=== PATIENT | male | born 1960 | race Caucasian/White ===

== ENCOUNTER 2024-12-07 04:51 | Day surgery (SDC) | payer OTHER ==
[2024-12-02 10:27] VITALS: BMI 31.8
[2024-12-07 13:06] VITALS: BP 116/87; PULSE 82; RESP 18; TEMP 98
== END 2024-12-07 12:47 | disposition home or self-care (01) ==
LOC: JASU-ENDO 04:51
PROVIDERS: ATTEND Internal Medicine Gastroenterology
PROC: 0DBM8ZX Excision of Descending Colon, Via Natural or Artificial Opening Endoscopic, Diagnostic (ICD-10-PCS; principal; 2024-12-07 11:15)
DX: K64.8 Other hemorrhoids (principal); K57.30 Diverticulosis of large intestine without perforation or abscess without bleeding; D12.4 Benign neoplasm of descending colon
CPT/HCPCS: 88305-TC

== ENCOUNTER 2024-12-16 07:27 | Day surgery (SDC) | payer OTHER ==
[2024-12-16 09:31] VITALS: BMI 31.8
[2024-12-16 11:05] VITALS: BP 128/88; PULSE 68; RESP 16; TEMP 97.6
== END 2024-12-16 11:22 | disposition home or self-care (01) ==
LOC: JASU-ENDO 07:27
PROVIDERS: ATTEND Internal Medicine Gastroenterology
PROC: 0DB78ZX Excision of Stomach, Pylorus, Via Natural or Artificial Opening Endoscopic, Diagnostic (ICD-10-PCS; 2024-12-16)
PROC: 0DB68ZX Excision of Stomach, Via Natural or Artificial Opening Endoscopic, Diagnostic (ICD-10-PCS; 2024-12-16)
PROC: 0DB48ZX Excision of Esophagogastric Junction, Via Natural or Artificial Opening Endoscopic, Diagnostic (ICD-10-PCS; principal; 2024-12-16 10:00)
DX: K21.00 Gastro-esophageal reflux disease with esophagitis, without bleeding (principal); K29.50 Unspecified chronic gastritis without bleeding
CPT/HCPCS: 88305-TC; 88342-TC

== ENCOUNTER 2025-01-05 09:04 | Day surgery (SDC) | payer OTHER ==
[2024-12-31 17:17] VITALS: BMI 30.7
[2025-01-05] MEDS ORDERED: BSS (NA/CA/MG/K) BALANCED SALT SOLUTION OPHTH SOLN 15 ML BOTTLE ONE (09:43)
[2025-01-05] MEDS ORDERED: NEO/POLYMYX B SULF/DEXAMETH OPHTHALMIC 5ML BOTTLE ONE (09:43)
[2025-01-05] MEDS ORDERED: CARBACHOL 0.01% INTRA-OCULAR 1.5 ML VIAL ONE (09:43)
[2025-01-05] MEDS ORDERED: TETRACAINE 0.5% OPHTH SOLN 2 ML BOTTLE ONE (09:43)
[2025-01-05] MEDS ORDERED: LIDOCAINE 1% P/F 10 MG/ML VIAL ONE (09:43)
[2025-01-05] MEDS ORDERED: TROPICAMIDE 1% 3 ML EYE DROPS ONE (09:45)
[2025-01-05] MEDS ORDERED: CIPROFLOXACIN 0.3% EYE DROPS 5 ML BOTTLE ONE (09:45)
[2025-01-05] MEDS ORDERED: CYCLOPENTOLATE 2% OPHTH SOLN 2 ML BOTTLE ONE (09:45)
[2025-01-05] MEDS ORDERED: PHENYLEPHRINE 2.5% OPTHALMIC DROP 2ML BOTTLE ONE (09:45)
[2025-01-05] MEDS: TROPICAMIDE 1% 3 ML EYE DROPS ONE (10:30)
[2025-01-05] MEDS: CYCLOPENTOLATE 2% OPHTH SOLN 2 ML BOTTLE ONE (10:30)
[2025-01-05] MEDS: CIPROFLOXACIN 0.3% EYE DROPS 5 ML BOTTLE ONE (10:30)
[2025-01-05] MEDS: PHENYLEPHRINE 2.5% OPTHALMIC DROP 2ML BOTTLE ONE (10:30)
[2025-01-05] MEDS ORDERED: MIDAZOLAM HCL 2 MG/2 ML SINGLE DOSE VIAL ONE (10:57)
[2025-01-05 12:06] VITALS: TEMP 97.5
[2025-01-05 12:11] VITALS: BP 125/85; PULSE 75; RESP 17
== END 2025-01-05 12:05 | disposition home or self-care (01) ==
LOC: FASU 09:04
PROVIDERS: ATTEND Ophthalmology
PROC: 08RK3JZ Replacement of Left Lens with Synthetic Substitute, Percutaneous Approach (ICD-10-PCS; principal; 2025-01-05 11:03)
DX: H26.8 Other specified cataract (principal)
CPT/HCPCS: 66984; V2632